=== PATIENT | female | born 1995 | race Caucasian/White ===

== ENCOUNTER → 2017-03-14 | Outpatient (CLI) | payer BC ==
[2017-03-14 10:44] LABS: HEMOGLOBIN 12.9 gm/dl (12.3-15.3); RED BLOOD COUNT 4.34 M/UL (4.00-5.10); WHITE BLOOD COUNT 3.6 K/UL (4.5-11.0)
[2017-03-14 11:33] LABS: BUN/CREATININE RATIO 13 (0-10)
== END ==
LOC: LAB 10:09
PROVIDERS: Nurse Practitioner Family
DX: R19.8 Other specified symptoms and signs involving the digestive system and abdomen (principal); R12 Heartburn; R10.9 Unspecified abdominal pain; N92.1 Excessive and frequent menstruation with irregular cycle; E55.9 Vitamin D deficiency, unspecified
CPT/HCPCS: 36415; 80053; 84439; 84443; 85025

== ENCOUNTER 2017-03-30 15:01 | Emergency (ER) | payer BC | END 2017-03-30 17:55 | disposition left against medical advice (07) | LOC: ER1 15:01 | DX: Z53.21 Procedure and treatment not carried out due to patient leaving prior to being seen by health care provider (principal) | CPT/HCPCS: 81001; 84703; J2270; J2405 ==

== ENCOUNTER → 2017-04-01 | Outpatient (CLI) | payer BC ==
[2017-04-01 14:49] LABS: HEMOGLOBIN 12.7 gm/dl (12.3-15.3); RED BLOOD COUNT 4.37 M/UL (4.00-5.10); WHITE BLOOD COUNT 5.3 K/UL (4.5-11.0)
== END ==
LOC: LAB 14:20
PROVIDERS: Nurse Practitioner Family
DX: R10.9 Unspecified abdominal pain (principal)
CPT/HCPCS: 36415; 85025

== ENCOUNTER → 2017-04-10 | Outpatient (CLI) | payer BC | LOC: KOH-I 03-20 08:30 | DX: R10.9 Unspecified abdominal pain (principal) | CPT/HCPCS: 76700 ==

== ENCOUNTER → 2022-08-21 | Outpatient (CLI) | payer OTHER | LOC: KOH-I 09:57 | DX: M25.572 Pain in left ankle and joints of left foot (principal); M21.6X2 Other acquired deformities of left foot | CPT/HCPCS: 73610 ==